=== PATIENT | male | born 1975 | race Two or more races ===

== ENCOUNTER 2022-12-13 22:24 | Emergency (ER) | payer OTHER ==
[~2022-12-13] VITALS: Ht 172.7 cm; Wt 86.4 kg
[2022-12-14] MEDS ORDERED: TETRACAINE HCL 0.5% OPTH(EYE) SOLN 4ML RIGHTEYE ONE (02:15)
[2022-12-14] MEDS ORDERED: FLUORESCEIN SOD OPTH TEST STRIP RIGHTEYE ONE (02:15)
[2022-12-14] MEDS ORDERED: HYDROcodone-ACET 5/325MG TAB PO ONE (02:15)
[2022-12-14] MEDS ORDERED: CIP03OS RIGHTEYE (03:21)
[2022-12-14 03:51] VITALS: BP 154/93
== END 2022-12-14 03:54 | disposition home or self-care (01) ==
LOC: ER 22:24
DX: H16.311 Corneal abscess, right eye (principal); Z88.1 Allergy status to other antibiotic agents